=== PATIENT | female | born 1965 | race Caucasian/White ===

== ENCOUNTER → 2020-05-17 08:17 | Outpatient (BNVA) | payer OTHER, SELFPAY | PROVIDERS: Visit Provider Nurse Practitioner Family | DX: Z20.828 Contact with and (suspected) exposure to other viral communicable diseases (principal) | CPT/HCPCS: 87635 ==

== ENCOUNTER → 2020-07-25 09:48 | Outpatient (BNVA) | payer OTHER, SELFPAY | PROVIDERS: PCP Nurse Practitioner Family; Visit Provider Family Medicine | DX: I10 Essential (primary) hypertension (principal); Z13.6 Encounter for screening for cardiovascular disorders | CPT/HCPCS: 80053; 80061; 83036; 84443; 85025 ==

== ENCOUNTER → 2021-02-05 13:38 | Outpatient (BNVA) | payer OTHER, SELFPAY | PROVIDERS: PCP Nurse Practitioner Family; Visit Provider Nurse Practitioner Family | DX: R30.0 Dysuria (principal); I10 Essential (primary) hypertension; R31.9 Hematuria, unspecified; R10.9 Unspecified abdominal pain | CPT/HCPCS: 81000 ==

== ENCOUNTER 2021-09-30 09:12 | Outpatient (CLI) | payer OTHER, SELFPAY ==
--- NOTE | 2021-09-30 10:03 | XRR_ITS ---
PROCEDURE INFORMATION: Exam: XR Chest Exam date and time: 09/30/2021 10:11 AM Age: 56 years old Clinical indication: Cough and shortness of breath; Additional info: Moderate persistent asthmatic bronchitis w/exacerbation TECHNIQUE: Imaging protocol: XR of the chest. Views: 2 views. COMPARISON: CR Chest 1 [place] [id number] 10/20/2018 9:55 AM FINDINGS: Lungs: Unremarkable. No consolidation. Pleural spaces: Unremarkable. No pleural effusion. No pneumothorax. Heart/Mediastinum: Unremarkable. No cardiomegaly. Bones/joints: Unremarkable. XR/XR chest 2V* [id number] IMPRESSION: No acute findings.
[2021-09-30 10:59] LABS: Basophils # 0.1 10^3/uL (0.0-0.1); Basophils % 0.8 %; Eosinophils # 0.4 10^3/uL (0.0-0.8); Eosinophils % 2.6 %; Hematocrit 43.9 % (37.0-47.0); Hemoglobin 14.8 g/dL (11.5-15.3); Lymphocytes # 5.4 10^3/uL (0.8-4.8); Lymphocytes % 40.3 %; Mean Corpuscular HGB Conc 33.7 g/dL (30.0-36.0); Mean Corpuscular Hemoglobin 32.3 pg (28.0-34.0); Mean Corpuscular Volume 95.9 fl (81-99); Mean Platelet Volume 11.6 fL (7.4-10.4); Monocytes # 0.8 10^3/uL (0.2-0.9); Neutrophils # 6.67 10^3/uL (1.8-7.7); Neutrophils % 49.9 %; Nucleated Red Blood Cells % 0 %; Platelet Count 238 10^3/cmm (130-400); Red Blood Count 4.58 10^6/uL (4.1-5.3); Red Cell Distribution Width 12.6 % (12.1-15.1); White Blood Count 13.4 10^3/uL (4.0-10.0)
[2021-09-30 11:47] LABS: Alanine Aminotransferase 41 U/L (0-33); Albumin Level 4.4 g/dL (3.5-5.2); Alkaline Phosphatase 77 IU/L (35-105); Anion Gap 20.4 (5-19); Aspartate Amino Transferase 30 U/L (0-32); Blood Urea Nitrogen 17 mg/dL (6-20); Calcium 9.7 mg/dL (8.5-10.5); Carbon Dioxide 20 mmol/L (22-29); Chloride 98 mmol/L (98-107); Cholesterol 211 mg/dL (0-200); Globulin 3.3 g/dL (1.3-4.6); Glomerular Filtration Rate 73.7 mL/min (90-130); Glucose 106 mg/dL (65-115); HDL Cholesterol 57 mg/dL (60-100); LDL Cholesterol Calculated 128 mg/dL (50-129); LDL HDL Ratio 2.25 RATIO (0.00-3.22); Osmolality Calculated 282 mOsm/kg (285-295); Potassium 3.4 mmol/L (3.5-5.1); Sodium 135 mmol/L (136-145); Thyroid Stimulating Hormone 1.64 uIU/mL (0.27-4.20); Total Bilirubin 0.5 mg/dL (0.15-1.2); Total Protein 7.7 g/dL (6.6-8.7); Triglycerides 132 mg/dL (0-150)
[2021-10-02 02:57] LABS: T4 Total 6.8 mcg/dL (5.1-11.9)
== END 2021-09-30 09:13 | disposition home or self-care (01) ==
PROVIDERS: PCP Nurse Practitioner Family; Visit Provider Nurse Practitioner Family
DX: J45.41 Moderate persistent asthma with (acute) exacerbation (principal); R05.9 Cough, unspecified; R06.02 Shortness of breath
CPT/HCPCS: 36415; 71046; 80053; 80061; 84436; 84443; 85025

== ENCOUNTER 2021-11-28 12:07 | Outpatient (CLI) | payer OTHER, SELFPAY ==
--- NOTE | 2021-11-28 12:16 | XR_ITS ---
WS: [id number] LEFT SHOULDER: 2 VIEW(S) TECHNIQUE: Internal and external rotation. HISTORY: ACUTE PAIN OF LEFT SHOULDER COMPARISON: None available. Distal clavicle is intact. Moderate narrowing of the AC joint. Moderate narrowing of the glenohumeral joint. Osteophytic ridging around the humeral head. No acute f racture is identified. Very subtle lucency along the superior humeral head may be related to the oste ophyte formation. Cannot confirm fracture. There is a well-circumscribed 18 mm osseous calcific densi ty in the axillary pouch. No rib fracture identified. XR/XR shoulder LT min 2V* [id number] IMPRESSION: 1. Moderate AC joint and glenohumeral joint narrowing and arthritis. 2. Osteophytic ridging around the humeral head. No fracture identified at this time. If pain continues consider evaluation by CT to evaluate for an occult fr acture. 3. 18 mm loose body in the axillary pouch.
--- NOTE | 2021-11-28 12:33 | XR_ITS ---
WS: [id number] LEFT RIBS, MULTIPLE VIEWS WITH PA CHEST HISTORY: RIB PAIN COMPARISON: None available. Lungs and mediastinum: Lungs are clear and well aerated. No pneumothorax. No pulmonary contusion. Ribs: Slight change in contour of the anterior sixth rib suspicious for fracture. Prior anterior cervical fusion. XR/XR ribs LT mn 3V w CXR1V [id number] IMPRESSION: Age-indeterminate nondisplaced anterior LEFT sixth rib fracture.
== END 2021-11-28 12:08 | disposition home or self-care (01) ==
PROVIDERS: PCP Nurse Practitioner Family; Visit Provider Nurse Practitioner Family
DX: M19.012 Primary osteoarthritis, left shoulder (principal); S22.32XA Fracture of one rib, left side, initial encounter for closed fracture; X58.XXXA Exposure to other specified factors, initial encounter
CPT/HCPCS: 71101; 73030

== ENCOUNTER 2021-12-17 09:32 | Outpatient (CLI) | payer SELFPAY ==
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
== END 2021-12-17 09:33 | disposition home or self-care (01) ==
LOC: RAD 09:34
PROVIDERS: PCP Nurse Practitioner Family; Visit Provider Nurse Practitioner Family
DX: M54.50 Low back pain, unspecified (principal)
CPT/HCPCS: 72100

== ENCOUNTER → 2022-01-19 08:59 | Outpatient (BNVA) | payer SELFPAY | PROVIDERS: PCP Nurse Practitioner Family; Visit Provider Student in an Organized Health Care Education/Training Program | DX: M25.519 Pain in unspecified shoulder (principal) | CPT/HCPCS: 73030 ==

== ENCOUNTER → 2022-03-27 09:55 | Outpatient (BNVA) | payer SELFPAY | PROVIDERS: PCP Nurse Practitioner Family; Visit Provider Student in an Organized Health Care Education/Training Program | DX: M19.019 Primary osteoarthritis, unspecified shoulder (principal) | CPT/HCPCS: 77002 ==

== ENCOUNTER 2022-05-28 08:33 | Outpatient (CLI) | payer SELFPAY ==
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
== END 2022-05-28 08:34 | disposition home or self-care (01) ==
LOC: RAD 08:35
PROVIDERS: PCP Nurse Practitioner Family; Visit Provider Student in an Organized Health Care Education/Training Program
DX: S46.812A Strain of other muscles, fascia and tendons at shoulder and upper arm level, left arm, initial encounter; X58.XXXA Exposure to other specified factors, initial encounter; M19.012 Primary osteoarthritis, left shoulder
CPT/HCPCS: 73221

== ENCOUNTER → 2022-07-23 10:18 | Outpatient (BNVA) | payer OTHER, SELFPAY | PROVIDERS: PCP Nurse Practitioner Family; Visit Provider Student in an Organized Health Care Education/Training Program | DX: S83.8X2A Sprain of other specified parts of left knee, initial encounter (principal); X50.0XXA Overexertion from strenuous movement or load, initial encounter | CPT/HCPCS: 73560; 73565 ==

== ENCOUNTER 2022-09-07 07:08 | Outpatient (CLI) | payer OTHER, SELFPAY ==
--- NOTE | 2022-09-07 07:15 | MR_ITS ---
WS: [id number] MRI LEFT KNEE HISTORY: Pain in left knee COMPARISON: 07/23/2022 Anterior cruciate ligament: Mild increased signal throughout the ACL. Posterior band demonstrates inc reased signal and the fibers are difficult to visualize in their entirety. Some of the fibers are in a more horizontal orientation than the anterior band. Partial tear suspected. Majority of the ACL is intact. Posterior cruciate ligament: Intact. Medial collateral ligament: Increased T2 signal surrounding the MCL. MCL is mildly displaced from the joint line by an extruded meniscus. No tear identified. Posterior lateral corner structures: Intact. Medial menisci: Complex tear posterior horn. Tear extends to the inferior articular surface and also towards the free edge. Blunting of the free edge. Lateral meniscus: Mild intrasubstance degeneration in the anterior horn. Extensor mechanism: Distal quadriceps tendon and patellar tendons are intact. Fluid and soft tissue: Moderate joint effusion. Mild diffuse soft tissue edema surrounding the knee. 4.3 cm Stokes's cyst. Osseous and articular structures: Patellofemoral compartment: Mild narrowing of patellofemoral joint space. No marrow edema. Medial compartment: Moderate narrowing of the medial compartment. Complete loss of cartilage. Weightb earing surface of femoral condyle and tibial plateau are irregular with loss of cartilage. Small jed inal osteophytes. There are a few tiny areas of low signal towards the intercondylar notch which may be small loose bodies. Lateral compartment: Mild narrowing of the joint space. Mild chondromalacia. There is an additional fluid collection containing a loose body adjacent to the fibular head. Fluid c ollection tracks to the posterior knee at the base the posterior meniscus. MR/MR knee LT wo con* [id number] IMPRESSION: 1. Moderate medial compartment osteoarthritic changes. Loss of joint space and loss of cartilage with small osteophytes. 2. Complex tear posterior horn medial meniscus with partial extrusion from the joint line. 3. Mild MCL sprain. 4. Moderate-sized Stokes's cyst. 5. Moderate joint effusion. 6. Lobulated fluid collection containing a loose body adjacent to the fibular head. Differential includes popliteus tendon bursitis. This fluid collection do es track superiorly to the posterior inferior meniscus. Occult meniscal tear is not excluded involving the posterior horn of the lateral meniscus. 7. Abnormal orientation of the posterior band of the ACL. Partial tear is not excluded.
== END 2022-09-07 07:09 | disposition home or self-care (01) ==
PROVIDERS: PCP Nurse Practitioner Family; Visit Provider Student in an Organized Health Care Education/Training Program
DX: S83.232A Complex tear of medial meniscus, current injury, left knee, initial encounter (principal); X58.XXXA Exposure to other specified factors, initial encounter; M71.22 Synovial cyst of popliteal space [Baker], left knee
CPT/HCPCS: 73721

== ENCOUNTER → 2022-12-09 08:40 | Outpatient (BNVA) | payer OTHER, SELFPAY | PROVIDERS: PCP Nurse Practitioner Family; Visit Provider Specialist | DX: S83.8X2A Sprain of other specified parts of left knee, initial encounter (principal); X58.XXXA Exposure to other specified factors, initial encounter; Y99.0 Civilian activity done for income or pay | CPT/HCPCS: 73560; 73565 ==

== ENCOUNTER 2022-12-09 14:13 | Outpatient (CLI) | payer OTHER, SELFPAY | END 2022-12-09 14:14 | disposition home or self-care (01) | LOC: SPT 14:14 | PROVIDERS: PCP Nurse Practitioner Family; Visit Provider Specialist | DX: Z46.89 Encounter for fitting and adjustment of other specified devices (principal); S83.8X2D Sprain of other specified parts of left knee, subsequent encounter; X58.XXXD Exposure to other specified factors, subsequent encounter | CPT/HCPCS: 97760; L1812 ==

== ENCOUNTER 2023-02-04 07:40 | Outpatient (RCR) | payer OTHER, SELFPAY | END 2023-02-27 23:59 | disposition home or self-care (01) | LOC: SPT 07:40 | PROVIDERS: PCP Nurse Practitioner Family; Visit Provider Neuromusculoskeletal Medicine, Sports Medicine | DX: Z98.890 Other specified postprocedural states (principal) | CPT/HCPCS: 97110; 97140; 97161 ==

== ENCOUNTER 2023-02-28 06:00 | Outpatient (RCR) | payer OTHER, SELFPAY | END 2023-03-30 23:59 | disposition home or self-care (01) | LOC: SPT 06:00 | PROVIDERS: PCP Nurse Practitioner Family; Visit Provider Neuromusculoskeletal Medicine, Sports Medicine | DX: Z47.1 Aftercare following joint replacement surgery (principal) | CPT/HCPCS: 97110; 97140 ==

== ENCOUNTER 2023-03-31 06:00 | Outpatient (RCR) | payer OTHER, SELFPAY | END 2023-04-29 23:59 | disposition home or self-care (01) | LOC: SPT 06:00 | PROVIDERS: PCP Nurse Practitioner Family; Visit Provider Neuromusculoskeletal Medicine, Sports Medicine | DX: Z98.890 Other specified postprocedural states (principal) | CPT/HCPCS: 97110; 97164 ==

== ENCOUNTER 2023-11-15 12:24 | Emergency (ER) | payer SELFPAY ==
[2023-11-15] VITALS (14 sets, daily range): BP systolic 163–175; BP diastolic 98–108; PULSE 50–60; RESP 16–27; TEMP 36.6; O2SAT 90–97; BMI 32.3
--- NOTE | 2023-11-15 12:32 | ECG_ITS ---
[facility] Test Date: 2023-11-15 Pat Name: Meghan Hollingsworth Department: Room: Gender: Female Box Builder: : 1965 Requested By: Melissa Yanez Order Number: [id number] Dianne MD: Pio Cleaning M.D. Measurements Intervals [place] Rate: 58 P: 41 [place]: 177 QRS: 11 QRSD: 97 T: 21 QT: 417 QTc: 413 Interpretive Statements SINUS BRADYCARDIA LOW QRS VOLTAGE IN PRECORDIAL LEADS [QRS DEFLECTION < 1.0 mV IN CHEST LEADS] No previous ECG available for comparison Electronically Signed On 11-15-2023 12:53:20 CDT by Pio Cleaning M.D. [id number]
--- NOTE | 2023-11-15 12:37 | XRR_ITS ---
PROCEDURE INFORMATION: Exam: XR Chest Exam date and time: 11/15/2023 1:03 PM Age: 58 years old Clinical indication: Pain; Angina pectoris; Additional info: Chest pain TECHNIQUE: Imaging protocol: Radiologic exam of the chest. Views: 1 view. COMPARISON: CR XR ribs LT mn 3V w CXR1V [id number] 11/28/2021 12:34 PM FINDINGS: Lungs: Resolved small amount of atelectasis and/or pneumonitis in the left lung base. Otherwise, unremarkable. Pleural spaces: Unremarkable. No pleural effusion. No pneumothorax. Heart/Mediastinum: Unremarkable. No cardiomegaly. Bones/joints: Unchanged mild scoliosis with mild and moderate multilevel spondylosis. Unchanged surgical hardware attached to the lower cervical spine. XR/XR chest 1V portable [id number] IMPRESSION: No acute disease.
[2023-11-15 13:04] LABS: Basophils # 0.1 10^3/uL (0.0-0.1); Basophils % 0.9 %; Eosinophils # 0.4 10^3/uL (0.0-0.8); Eosinophils % 4.7 %; Hematocrit 40.6 % (36-47); Lymphocytes # 3.4 10^3/uL (0.8-4.8); Lymphocytes % 37.1 %; Mean Corpuscular HGB Conc 34.5 g/dL (30-55); Mean Corpuscular Hemoglobin 33.1 pg (27-33); Mean Platelet Volume 11.2 fL (7.4-10.4); Monocytes # 0.7 10^3/uL (0.2-0.9); Monocytes % 7.3 %; Neutrophils # 4.51 10^3/uL (1.8-7.7); Neutrophils % 49.7 %; Nucleated Red Blood Cells % 0 %; Platelet Count 180 10^3/cmm (157-399); Red Blood Count 4.23 10^6/uL (3.85-5.65); Red Cell Distribution Width 12.9 % (12.1-15.1); White Blood Count 9.08 10^3/uL (3.29-11.43)
[2023-11-15 13:28] LABS: Troponin(5th) Baseline 7 ng/L (0-10)
[2023-11-15 13:40] LABS: Alanine Aminotransferase 104 U/L (0-33); Albumin Level 4.4 g/dL (3.5-5.2); Alkaline Phosphatase 76 U/L (35-105); Anion Gap 14.9 (5-19); Aspartate Amino Transferase 87 U/L (0-32); Blood Urea Nitrogen 13 mg/dL (8-23); C Reactive Protein 3.5 mg/L (0.0-4.9); Calcium 9.7 mg/dL (8.5-10.5); Carbon Dioxide 25 mmol/L (22-29); Chloride 104 mmol/L (98-107); Creatinine Clr Calc Pharmacy 75.4162; Globulin 2.4 g/dL (1.3-4.6); Glomerular Filtration Rate 63.9 mL/min (90-130); Glucose 101 mg/dL (65-115); Osmolality Calculated 290 mOsm/kg (285-295); Potassium 3.9 mmol/L (3.5-5.1); Sodium 140 mmol/L (136-145); Total Bilirubin 0.4 mg/dL (0.15-1.2); Total Protein 6.8 g/dL (6.6-8.7)
--- NOTE | 2023-11-15 14:37 | ECG_ITS ---
[facility] Test Date: 2023-11-15 Pat Name: Meghan Hollingsworth Department: Room: Gender: Female Rim Technician: : 1965 Requested By: Melissa Yanez Order Number: [id number] Dianne MD: Pio Cleaning M.D. Measurements Intervals [place] Rate: 52 P: 55 [place]: 171 QRS: 31 QRSD: 96 T: 41 QT: 441 QTc: 413 Interpretive Statements SINUS BRADYCARDIA Compared to ECG 11/15/2023 12:32:02 No significant changes Electronically Signed On 11-15-2023 15:22:07 CDT by Pio Cleaning M.D. [id number]
--- NOTE | 2023-11-15 15:25 | ED_ITS ---
HPI - Chest Pain 2 General: Chief Complaint: Chest Pain Stated Complaint: Dr Rodriguez referral, cardiac symptoms Time Seen by Provider: 11/15/23 13:18 History of Present Illness: 58-year-old female with a history of hyp ertension and a strong family history of coronary artery disease who presents to the emergency room with left arm pain that is turned into some left chest pain and some nausea. She has no known cardiac history. She is on blood pressure meds and had these adjusted recently. The pain in her shoulder has been for several days. Then moved into her chest somewhat. She says it feels like a pressure. 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 No fevers. No cough. No altered mental status. No focal motor deficits. No abdominal pain. Review of Systems 2 Narrative: Constitutional symptoms: Negative except as documented in HPI. Skin symptoms: Negative except as documented in HPI. Eye symptoms: Negative except as documented in HPI. ENMT symptoms: Negative except as documented in HPI. Respiratory symptoms: Negative except as documented in HPI. Cardiovascular symptoms: Negative except as documented in HPI. Gastrointestinal symptoms: Negative except as documented in HPI. Genitourinary symptoms: Negative except as documented in HPI. Musculoskeletal symptoms: Negative except as documented in HPI. Neurologic symptoms: Negative except as documented in HPI. Psychiatric symptoms: Negative except as documented in HPI. Endocrine symptoms: Negative except as documented in HPI. PFSH ED 2 PFSH: Medical History Arthritis of left glenohumeral joint Hypertension Injury of meniscus of left knee Left rotator cuff tear Subacromial impingement of left shoulder Synovitis of right foot Tendinitis of left rotator cuff Surgical History Hx of section Hx of hysterectomy Social History Smoking and tobacco/nicotine status: current every day tobacco/nicotine user cigarettes Years cigarettes smoked: 35 Quit status (tobacco/nicotine): has tried quititng Alcohol intake: current Alcohol intake frequency: few times a week Substance/Drug Use: never Caregiver/support person: Yes Lives independently: Yes Household members: significant other Marital status: service: No Current occupational status: employed Current occupation: [employer] Current gender identity: Female Agree to transfusion: Yes Physical Exam 2 Narrative: EXAM NARRATIVE: General: Alert, no acute distress. Skin: Warm, dry. Head: Normocephalic, atraumatic. Neck: Supple, trachea midline. Eye: Extraocular movements are intact. Ears, nose, mouth and throat: mucosa moist. Cardiovascular: Regular, Normal peripheral perfusion. Respiratory: Lungs are clear to auscultation, respirations are non-labored, breath sounds are equal, Symmetrical chest wall expansion. Gastrointestinal: Soft, Nontender, Non distended, Normal bowel sounds. Musculoskeletal: Normal ROM, no deformity. Neurological: Alert and oriented, No focal neurological deficit observed. Psychiatric: Cooperative, appropriate mood & affect. Course 2 Vital Signs: Vital signs: Vital Signs Temperature 97.8 F 11/15/23 12:31 Pulse Rate 53 L 11/15/23 15:35 Respiratory Rate 27 H 11/15/23 15:35 Blood Pressure 168/103 11/15/23 16:00 Pulse Oximetry 90 11/15/23 16:00 Oxygen Delivery Me thod Room Air 11/15/23 12:31 MDM - Chest Pain Medical Decision Making Differential diagnosis for patient with chest pain includes but is not limited to and based on the above HPI, review of systems and physical exam: Pneumonia. unstable angina. angina. Acute coronary syndrome / [place]. Pulmonary embolism. Costochondritis / musculoskeletal. Pleurisy. Pericarditis. Esophageal spasm. Pancreatis. Cholecystitis. Workup: Lab work, chest X-ray and EKG ordered to evaluate, rule in and rule out above pathologies. EKG: Time 1232. Rate 58. Sinus bradycardia, No ST-T changes, no ectopy, normal RI & QRS intervals, This was reviewed and interpreted by myself the ER physician at 1236 Chest x-ray: No acute process. No infiltrate. No pneumothorax. No cardiomegaly. This was reviewed and interpreted by myself the ER physician. Repeat EKG: Time 1520. Rate 52. Sinus bradycardia, No ST-T changes, no ectopy, normal RI & QRS intervals, This was reviewed and interpreted by myself the ER physician at 1525. No significant changes from previous EKG Lab Review: Laboratory results were reviewed and interpreted by myself the emergency room physician. No leukocytosis. White count is 9. No anemia. Hemoglobin is 14. Renal function is normal at 13 and 0.9. Serial troponins are negative I reviewed the patient's medical record. Reexamination: Patient remained stable. Still has a slight ache in her left arm. Nausea is improved with nausea medications. No increased work of breathing. No altered mental status. No focal motor deficits. Assessment and plan: Noncardiac chest pain Hypertension - Discharged home - Discussed findings and plan with patient. Answered any questions. - All laboratory values were reviewed and interpreted personally by myself, the ER physician - All imaging was reviewed and interpreted personally by myself, the ER physician. - Evaluation and treatment of this problem were appropriate in the emergency setting Lab Data 11/15/23 12:56 11/15/23 12:56 Radiology Impressions Chest X-Ray 11/15/23 12:37 IMPRESSION: No acute disease. Laboratory Results WBC 9.08 10^3/uL (3.29-11.43) 11/15/23 12:56 RBC 4.23 10^6/uL (3.85-5.65) 11/15/23 12:56 Hgb 14.00 g/dL (11.27-16.99) 11/15/23 12:56 Hct 40.6 % (36-47) 11/15/23 12:56 MCV 96.0 fl (85-98) 11/15/23 12:56 MCH 33.1 pg (27-33) H 11/15/23 12:56 MCHC 34.5 g/dL (30-55) 11/15/23 12:56 RDW 12.9 % (12.1-15.1) 11/15/23 12:56 Plt Count 180 10^3/cmm (157-399) 11/15/23 12:56 MPV 11.2 fL (7.4-10.4) H 11/15/23 12:56 Neut % (Auto) 49.7 % 11/15/23 12:56 Lymph % (Auto) 37.1 % 11/15/23 12:56 [place] % (Auto) 7.3 % 11/15/23 12:56 Eos % (Auto) 4.7 % 11/15/23 12:56 Baso % (Auto) 0.9 % 11/15/23 12:56 Neut # (Auto) 4.51 10^3/uL (1.8-7.7) 11/15/23 12:56 Lymph # (Auto) 3.4 10^3/uL (0.8-4.8) 11/15/23 12:56 [place] # (Auto) 0.7 10^3/uL (0.2-0.9) 11/15/23 12:56 Eos # (Auto) 0.4 10^3/uL (0.0-0.8) 11/15/23 12:56 Baso # (Auto) 0.1 10^3/uL (0.0-0.1) 11/15/23 12:56 Nucleated RBC % (auto) 0 % 11/15/23 12:56 Nucleated RBCs # 0.0 /100WBC 11/15/23 12:56 Sodium 140 mmol/L (136-145) 11/15/23 12:56 Potassium 3.9 mmol/L (3.5-5.1) 11/15/23 12:56 Chloride 104 mmol/L (98-107) 11/15/23 12:56 Carbon Dioxide 25 mmol/L (22-29) 11/15/23 12:56 Anion Gap 14.9 (5-19) 11/15/23 12:56 BUN 13 mg/dL (8-23) 11/15/23 12:56 Creatinine 0.9 mg/dL (0.5-0.9) 11/15/23 12:56 GFR Calculation 63.9 mL/min (90-130) L 11/15/23 12:56 Glucose 101 mg/dL (65-115) 11/15/23 12:56 Calculated Osmolality 290 mOsm/kg (285-295) 11/15/23 12:56 Calcium 9.7 mg/dL (8.5-10.5) 11/15/23 12:56 Total Bilirubin 0.4 mg/dL (0.15-1.2) 11/15/23 12:56 AST 87 U/L (0-32) H 11/15/23 12:56 ALT 104 U/L (0-33) H 11/15/23 12:56 Alkaline Phosphatase 76 U/L (35-105) 11/15/23 12:56 Troponin T Baseline 7 ng/L (0-10) 11/15/23 12:56 Troponin T 120 Minute 6.00 ng/L (0-10) 11/15/23 15:20 Delta Troponin T -1.00 ABS# (0-10) L 11/15/23 15:20 C-Reactive Protein 3.5 mg/L (0.0-4.9) 11/15/23 12:56 Total Protein 6.8 g/dL (6.6-8.7) 11/15/23 12:56 Albumin 4.4 g/dL (3.5-5.2) 11/15/23 12:56 Globulin 2.4 g/dL (1.3-4.6) 11/15/23 12:56 All radiology interpretation(s) finalized by discharge Discharge Plan Discharge Patient Disposition: Home Clinical Impression: Non-cardiac chest pain Hypertension Qualifiers: Hypertension type: primary hypertension Qualified Code(s): I10 - Essential (primary) hypertension Condition: Stable Prescriptions: No Action acetaminophen [Tylenol Extra Strength] 500 mg tablet 1,000 mg PO Q6H PRN hydrochlorothiazide 25 mg tablet 25 mg PO QAM Qty: 90 1RF lisinopril 20 mg tablet 20 mg PO DAILY Qty: 90 1RF ciprofloxacin HCl [Cipro] 500 mg tablet 500 mg PO BID 7 Days Qty: 14 0RF buspirone 5 mg tablet 5 mg PO BID Qty: 180 1RF (DME) hinged knee brace See Rx Instructions .Route .MEDSUPPLY Qty: 1 0RF Rx Instructions: As directed methylprednisolone [Medrol (Prateek)] 4 mg tablets,dose pack See Rx Instructions PO PER PKG DIR Qty: 21 0RF Rx Instructions: PO PER PKG DIR tramadol 50 mg tablet 50 mg PO BID PRN (Reason: pain) 7 Days Qty: 14 0RF meloxicam 15 mg tablet See Rx Instructions .ROUTE .COMPLEX Qty: 30 0RF Dose Instruction: Take 1 tablet by mouth once daily Rx Instructions: Take 1 tablet by mouth once daily Discharge Orders: Discharge ED (Routine); Ordered 11/15/23 Ordered By: Melissa Dalal Referrals: Michael,RAVEN Espinoza [Primary Care Provider] - Discharge Diet: Usual diet Discharge Activity: Resume usual activity Patient Instructions: Hypertension (ED), Noncardiac Chest Pain (ED) Activity Restrictions/Additional Instructions: Thank you for choosing [facility] for your healthcare needs today. Please realize this is an emergency room and that we are providing you with a medical screening exam and this may not be complete and all inclusive of all the testing and or work up that you may need to determine your ailment or severity of your illness. You have been screened and evaluated and felt safe for discharge. Health conditions do change or evolve sometimes and as such it is important that you follow up with your Primary Doctor to be re checked, 3-5 days is a general good time frame for follow up. You are always welcome to return to the ED for re assessment if your symptoms are worsening or you have new concerns Coding Level of Care Code ED Fish Warden for Sudha Rojas
[2023-11-15] MEDS: ondansetron 2 mg/ML SDV 2 mL 8 MG IVP (15:40)
== END 2023-11-15 16:04 | disposition home or self-care (01) ==
PROVIDERS: Emergency Provider Emergency Medicine; PCP Nurse Practitioner Family
DX: R07.89 Other chest pain (principal); I10 Essential (primary) hypertension; F17.210 Nicotine dependence, cigarettes, uncomplicated; R00.1 Bradycardia, unspecified
CPT/HCPCS: 36415; 71045; 80053; 84484; 85025; 86140; 93005; 96374; 99285; J2405

== ENCOUNTER 2024-03-30 11:33 | Outpatient (CLI) | payer BC, MEDICAID, SELFPAY ==
--- NOTE | 2024-03-30 11:41 | XR_ITS ---
WS: [email or web address] Left foot, 2 views, 03/30/2024 Clinical Data: ANKLE PAIN Comparison: None. Findings: No fractures or dislocations are seen. No bone destruction or erosion is noted. The joint spaces and soft tissues are normal. XR/XR foot LT 2V [id number] Impression: Negative left foot.
--- NOTE | 2024-03-30 11:41 | XR_ITS ---
WS: [email or web address] Left ankle, 2 views, 03/30/2024 Clinical Data: ANKLE PAIN Comparison: None. Findings: No fractures or dislocations are seen. The ankle mortise is normal. The talus and calcaneus are unrem arkable. No soft tissue swelling over the medial or lateral malleolus is seen. XR/XR ankle LT 2V [id number] Impression: Negative left ankle.
== END 2024-03-30 11:34 | disposition home or self-care (01) ==
LOC: RAD 11:37
PROVIDERS: PCP Nurse Practitioner Family; Visit Provider Nurse Practitioner Family
DX: M25.572 Pain in left ankle and joints of left foot (principal)
CPT/HCPCS: 73600; 73620

== ENCOUNTER 2025-01-25 16:26 | Emergency (ER) | payer BC, MEDICAID, SELFPAY ==
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
[2025-01-25 16:36] VITALS: BP 162/102; PULSE 77; RESP 14; TEMP 37.1; O2SAT 96; BMI 32.3
--- NOTE | 2025-01-25 17:19 | XRR_ITS ---
PROCEDURE INFORMATION: Exam: XR Left Shoulder Exam date and time: 01/25/2025 5:27 PM Age: 59 years old Clinical indication: Pain; Shoulder; Left; Prior surgery; Surgery date: 6+ months; Surgery type: Rotator cuff repair; Additional info: Shoulder pain TECHNIQUE: Imaging protocol: Radiologic exam of the left shoulder. Views: 2 or more views. COMPARISON: CR XR chest 1V portable [id number] 11/15/2023 1:03 PM FINDINGS: Bones/joints: Moderate degenerative changes of the glenohumeral joint. Wzgd-sl-vrofhveg degenerative changes of the AC joint. No definite acute fracture, subluxation, dislocation. Probable calcific tendinopathy of rotator cuff. Soft tissues: Normal. XR/XR shoulder LT min 2V* [id number] IMPRESSION: No definite acute fracture, subluxation, dislocation.
[2025-01-25] MEDS: orphenadrine 30 mg/mL Inj 2 mL 60 MG IM (17:32)
--- NOTE | 2025-01-25 18:31 | W.ED.EXTPRO ---
HPI - Extremity Problem General: Chief complaint: Extremity Injury, Upper Stated complaint: heard cracking in left shoulder, cant lift now Time Seen by Provider: 01/25/25 16:56 Source: patient Mode of arrival: ambulatory Limitations: no limitations History of Present Illness: Patient is a 59-year-old female who presents the emergency department for left shoulder pain after lifting heavy log. Patient states she was cutting wood and afterwards was lifting a log weighing approximately 120 pounds when she heard a couple of loud pops in her shoulder. She reports a history of 2 surgeries in the shoulder, and states she thinks she may have dislocated and then relocated it. She is currently rating the pain as a 0 while sitting still, but it is severe when she goes to move at the shoulder. No trauma reported. No distal neurovascular symptoms reported. She takes tramadol chronically for pain. MD Complaint: joint pain Onset (ago): minute(s) Pain Consistency: constant Location: left and upper extremity (Shoulder) Exacerbating factors: range of motion Associated symptoms: Deny chest pain, fever(s) or rash Related Data Home Medications ?Medication ?Instructions ?Recorded ?Confirmed acetaminophen 500 mg tablet 1,000 mg PO Q6H PRN 10/05/19 12/09/22 (Tylenol Extra Strength) Previous Rx's ?Medication ?Instructions ?Recorded buspirone 5 mg tablet 5 mg PO BID #180 tabs 09/02/20 methylprednisolone 4 mg tablets in See Rx Instructions PO PER PKG DIR 09/20/20 a dose pack (Medrol (Prateek)) #21 ea ciprofloxacin HCl 500 mg tablet 500 mg PO BID 7 days #14 tabs 02/05/21 (Cipro) hydrochlorothiazide 25 mg tablet 25 mg PO QAM #90 tabs 02/05/21 lisinopril 20 mg tablet 20 mg PO DAILY #90 tabs 02/05/21 tramadol 50 mg tablet 50 mg PO BID PRN pain 7 days #14 10/12/22 tabs hinged knee brace #1 ea 12/09/22 meloxicam 15 mg tablet See Rx Instructions .Route 12/31/22 Held on 01/25/25. .COMPLEX #30 tabs Instructions: Resume on 02/01/25. cyclobenzaprine 5 mg tablet 5 mg PO Q8H #10 tabs 01/25/25 ketorolac 10 mg tablet 10 mg PO Q8H PRN pain #15 tabs 01/25/25 Allergies Allergy/AdvReac Type Severity Reaction Status Date / Time shellfish derived Allergy Severe ALGY-Hives Verified 12/09/22 09:16 Penicillins AdvReac HIVES Verified 12/09/22 09:16 Review of Systems General: Reports: 10 or more systems reviewed and unremarkable except in HPI and below Const: Denies: fever(s) or chills Card: Denies: chest pain Resp: Denies: dyspnea or productive cough GI: Denies: abdominal pain, nausea, vomiting or diarrhea : Denies: flank pain Musc: Reports: joint pain (Left shoulder) and limited range of motion (Left shoulder); Denies: neck pain, back pain, extremity pain, extremity swelling, joint swelling, joint redness, joint warmth or muscle weakness Skin/Breast: Denies: rash Neuro: Denies: headache(s), numbness in extremities or weakness in extremities PFSH ED PFSH: Medical History Injury of meniscus of left knee Left rotator cuff tear Synovitis of right foot Arthritis of left glenohumeral joint Subacromial impingement of left shoulder Tendinitis of left rotator cuff Hypertension Surgical History Hx of section Hx of hysterectomy Social History Smoking and tobacco/nicotine status: current every day tobacco/nicotine user cigarettes Years cigarettes smoked: 35 Quit status (tobacco/nicotine): has tried quititng Alcohol intake: current Alcohol intake frequency: few times a week Substance/Drug Use: never Caregiver/support person: Yes Lives independently: Yes Household members: significant other Marital status: service: No Current occupational status: employed Current occupation: [employer] Current gender identity: Female Agree to transfusion: Yes Physical Exam Const: COMMON NORMALS: no acute distress, patient oriented x3, no limitations, healthy appearing, alert and well nourished HENMT: COMMON NORMALS: normocephalic and atraumatic HEAD & SCALP: normocephalic and atraumatic Neck/C-Spine: COMMON NORMALS: full ROM, supple and no meningeal signs Resp: COMMON NORMALS: normal respiratory effort, No use of accessory muscles and clear to auscultation bilaterally AUSCULTATION: clear to auscultation bilaterally Cardio: COMMON NORMALS: regular rate and regular rhythm RATE: regular rate RHYTHM: regular rhythm Extremity: COMMON NORMALS: capillary refill normal, no joint enlargement and no clubbing, cyanosis or edema NARRATIVE EXTREMITY EXAM: Postop surgical scar to left shoulder. Severe pain with any range of motion at the left shoulder. Tender to palpation diffusely of the left shoulder. Distal radial pulses palpable, distal strength are normal. Normal elbow examination. No coolness or pallor to the extremity. Neuro: COMMON NORMALS: patient oriented x3, moves all extremities, no focal motor deficits and no sensory deficits noted SENSORIUM/ORIENTATION: Yes alert MENINGEAL SIGNS: Yes no meningeal signs Skin: COMMON NORMALS: no rashes or lesions noted GENERAL SKIN EXAM: no rashes or lesions noted Course Vital Signs: Vital signs: Vital Signs Temperature 98.8 F 01/25/25 16:36 Pulse Rate 77 01/25/25 16:36 Respiratory Rate 14 01/25/25 16:36 Blood Pressure 162/102 01/25/25 16:36 Pulse Oximetry 96 01/25/25 16:36 Oxygen Delivery Me thod Room Air 01/25/25 16:36 MDM - Extremity (Nontraumatic) Medical Decision Making This patient presented after injuring her left shoulder while lifting heavy object, states that she heard a bunch of pops in severe pain. History of previous operations on the left shoulder. Neurologically intact on exam, no signs of vascular compromise distally with good strength and sensations. Radial pulses palpable. Did not show any acute findings, she likely could have subluxed her shoulder and then it spontaneously reduced due to the amount of pain she was in and reporting history of similar. She was given Norflex Toradol and Decadron here and states that her pain felt quite a bit better and she notably had more range of motion. Informed her to follow-up with primary care for further evaluation if she continues to have pain and to treat conservatively at home. No further workup necessary in the ED at this time. Lab Data Radiology Impressions Shoulder X-Ray 01/25/25 17:19 IMPRESSION: No definite acute fracture, subluxation, dislocation. All radiology interpretation(s) finalized by discharge Discharge Plan Discharge Patient Disposition: Home Clinical Impression: Shoulder subluxation, left Qualifiers: Encounter type: initial encounter Qualified Code(s): S43.002A - Unspecified subluxation of left shoulder joint, initial encounter Condition: Stable Prescriptions: New ketorolac 10 mg tablet 10 mg PO Q8H PRN (Reason: pain) Qty: 15 0RF cyclobenzaprine 5 mg tablet 5 mg PO Q8H Qty: 10 0RF Held meloxicam 15 mg tablet See Rx Instructions .ROUTE .COMPLEX Qty: 30 0RF Hold Instructions: Resume on 02/01/25. Dose Instruction: Take 1 tablet by mouth once daily Rx Instructions: Take 1 tablet by mouth once daily No Action acetaminophen [Tylenol Extra Strength] 500 mg tablet 1,000 mg PO Q6H PRN hydrochlorothiazide 25 mg tablet 25 mg PO QAM Qty: 90 1RF lisinopril 20 mg tablet 20 mg PO DAILY Qty: 90 1RF ciprofloxacin HCl [Cipro] 500 mg tablet 500 mg PO BID 7 Days Qty: 14 0RF buspirone 5 mg tablet 5 mg PO BID Qty: 180 1RF (DME) hinged knee brace See Rx Instructions .Route .MEDSUPPLY Qty: 1 0RF Rx Instructions: As directed methylprednisolone [Medrol (Prateek)] 4 mg tablets,dose pack See Rx Instructions PO PER PKG DIR Qty: 21 0RF Rx Instructions: PO PER PKG DIR tramadol 50 mg tablet 50 mg PO BID PRN (Reason: pain) 7 Days Qty: 14 0RF Discharge Orders: Discharge ED (Routine); Ordered 01/25/25 Ordered By: Shaq Romo Referrals: Olga Rodriguez APN [Primary Care Provider, Nurse Practitioner] Patient Instructions: Patient Portal & Carlos Instructions Activity Restrictions/Additional Instructions: Shoulder Subluxation Discharge Discharge Instructions: Suspected Left Shoulder Subluxation (Resolved) Diagnosis and Hospital Course: 59-year-old female presented with suspected left shoulder subluxation, which resolved spontaneously. Post-event radiographs were unremarkable, with no evidence of fracture or persistent dislocation. Neurovascular status was intact pre- and post-reduction. Medications: - Cyclobenzaprine: Prescribed for short-term muscle spasm relief. - Ketorolac (Toradol): Prescribed for short-term pain control. - NSAIDs are supported for acute pain management in musculoskeletal injuries, with evidence for modest pain reduction in rotator cuff and instability syndromes. - Use the lowest effective dose for the shortest duration possible to minimize risk of gastrointestinal, renal, and cardiovascular adverse effects. - Avoid NSAIDs in patients with history of peptic ulcer disease, renal insufficiency, or heart failure unless benefits outweigh risks. Activity and Immobilization: - Sling may be used for comfort as needed, but prolonged immobilization is not recommended; early mobilization and progression to physical therapy is advised. - No specific duration of sling use is supported by current evidence; discontinue as soon as pain allows. - Avoid heavy lifting, overhead activities, or sports until cleared by follow-up. Physical Therapy and Rehabilitation: - Initiate physical therapy within 1?2 weeks, focusing on: - Mormon of shoulder range of motion (ROM) - Scapular control and rotator cuff strengthening - Gradual progression to functional and sport-specific activities - Pendulum exercises and gentle stretching may be started at home if pain permits. - Strengthening should be performed in the scapular plane or at 0? abduction to minimize risk of impingement. Follow-Up: - Schedule outpatient follow-up with orthopedic or sports medicine within 1?2 weeks for reassessment and initiation of formal rehabilitation. - Monitor for signs of recurrent instability (e.g., sensation of slipping, apprehension, or repeated subluxation/dislocation). - If persistent pain, weakness, or instability occurs, further imaging (MRI or ultrasound) may be indicated to assess for soft tissue injury. Warning Signs: - Return to ED or contact provider if any of the following occur: - Increasing pain, swelling, or redness - Numbness, tingling, or weakness in the arm or hand - Inability to move the shoulder or arm - Signs of infection (fever, chills) Patient Education: - Educate on the risk of recurrence, especially in older adults and those with prior instability. - Emphasize adherence to rehabilitation and avoidance of provocative activities until cleared. Summary of Evidence: - Short-term NSAIDs and muscle relaxants are effective for pain control in acute shoulder injuries. - Early mobilization and structured rehabilitation are recommended to restore function and minimize recurrence risk. - Close follow-up is essential to monitor for complications and guide return to activity. Print Language: Icelandic Coding Level of Care Code ED [employer] Checker for Sudha Rojas
== END 2025-01-25 19:25 | disposition home or self-care (01) ==
PROVIDERS: Emergency Provider Physician Assistant; PCP Nurse Practitioner Family
DX: S43.002A Unspecified subluxation of left shoulder joint, initial encounter (principal); F17.210 Nicotine dependence, cigarettes, uncomplicated; I10 Essential (primary) hypertension; X50.0XXA Overexertion from strenuous movement or load, initial encounter
CPT/HCPCS: 73030; 96372; 99284; J1100; J1885; J2360